=== PATIENT | male | born 1955 | race Hispanic/Latino ===

== ENCOUNTER 2019-01-30 11:57 | Emergency (ER) | payer SELFPAY ==
[2019-01-30] MEDS ORDERED: IBUPROFEN 600 MG TABLET ONE (13:47)
[2019-01-30] MEDS ORDERED: ACETAMINOPHEN-CODEINE 300/30MG TAB ONE (13:47)
== END 2019-01-30 14:54 | disposition home or self-care (01) ==
LOC: EDH 11:57
DX: M13.80 Other specified arthritis, unspecified site (principal); E11.9 Type 2 diabetes mellitus without complications; E78.5 Hyperlipidemia, unspecified; I10 Essential (primary) hypertension; Z79.4 Long term (current) use of insulin
CPT/HCPCS: 73610

== ENCOUNTER → 2022-06-27 | Outpatient (CLI) | payer OTHER, SELFPAY | END | disposition home or self-care (01) | LOC: RAH 12:45 | PROVIDERS: ATTEND Internal Medicine Cardiovascular Disease | DX: Z13.6 Encounter for screening for cardiovascular disorders (principal); I51.5 Myocardial degeneration | CPT/HCPCS: 75571 ==

== ENCOUNTER → 2022-09-06 | Outpatient (CLI) | payer OTHER ==
[~2022-09-06] VITALS: Ht 172.7 cm; Wt 90.3 kg
[~2022-09-06] MED LIST: REGADENOSON 0.4 MG/5 ML PF SYG IVP SCH
== END | disposition home or self-care (01) ==
LOC: SHCH 08:07
PROVIDERS: ATTEND Internal Medicine Cardiovascular Disease
DX: E83.52 Hypercalcemia (principal); I10 Essential (primary) hypertension; Z79.899 Other long term (current) drug therapy
CPT/HCPCS: 78452; 96374; 93017; J2785; A9500 ×2